=== PATIENT | male | born 1990 | race Asian ===

== ENCOUNTER 2017-05-11 12:35 | Emergency (ER) | payer MEDICAID, OTHER ==
[~2017-05-11] VITALS: Ht 170.2 cm; Wt 55.0 kg
[2017-05-11] MEDS ORDERED: SODIUM CHLORIDE 0.9% 1,000 ML IV ONE (14:28)
[2017-05-11] MEDS ORDERED: IBUPROFEN 600MG TABLET PO ONE (14:30)
[2017-05-11] MEDS ORDERED: MAGNESIUM/ALUMINUM HYDROXIDE/SIMETHICONE 30ML UDC PO ONE (14:30)
[2017-05-11 14:55] LABS: CHLORIDE 103 mEq/L (98-107)
[2017-05-11 14:58] LABS: BASOPHILS % 0.4 % (0.0-2.0); EOSINOPHILS % 2.5 % (0.0-5.0); HEMATOCRIT. 45.6 % (42.0-52.0); HEMOGLOBIN. 15.2 g/dL (14.0-18.0); LYMPHOCYTES % 26.9 % (20.0-50.0); MEAN CORPUSCULAR HEMOGLOBIN 26.9 pg (28.0-32.0); MEAN PLATELET VOLUME 7.6 fl (7.4-10.4); MONOCYTES % 9.8 % (2.0-8.0); NEUTROPHILS % 60.4 % (40.0-76.0); PLATELET 274 x1000/uL (130-400); RED BLOOD CELL COUNT 5.63 mill/uL (4.7-6.1); RED CELL DISTRIBUTION WIDTH 12.9 % (11.6-14.6)
[2017-05-11 15:00] LABS: CARBON DIOXIDE 29 mEq/L (21-32)
[2017-05-11 15:01] LABS: D-DIMER < 0.19 mg/L FEU (<0.50); INR 1.1; PARTIAL THROMBOPLASTIN TIME 26.5 sec (23.4-31.0); PROTHROMBIN TIME 10.9 sec (9.4-11.6)
[2017-05-11 16:06] VITALS: BP 104/76
== END 2017-05-11 16:50 | disposition home or self-care (01) ==
LOC: ER 14:24
DX: R07.89 Other chest pain (principal); M79.662 Pain in left lower leg; K58.9 Irritable bowel syndrome, unspecified; K21.9 Gastro-esophageal reflux disease without esophagitis
CPT/HCPCS: 36415; 71010; 80048; 85025; 85379; 85610; 85730; 93005; 93970; 99285; Z7610; J7030

== ENCOUNTER 2017-05-31 04:41 | Emergency (ER) | payer OTHER ==
[~2017-05-31] VITALS: Ht 170.2 cm; Wt 58.0 kg
[2017-05-31] MEDS ORDERED: MORPHINE SULFATE 4 MG/ML CPJ (NOT FOR IM USE) IV ONE (07:15)
[2017-05-31] MEDS ORDERED: SODIUM CHLORIDE 0.9% 1,000 ML IV ONE (07:15)
[2017-05-31] MEDS ORDERED: ONDANSETRON HCL 4MG/2ML VIAL IV ONE (07:15)
[2017-05-31 07:34] LABS: BASOPHILS % 0.4 % (0.0-2.0); EOSINOPHILS % 1.2 % (0.0-5.0); HEMATOCRIT. 43.2 % (42.0-52.0); HEMOGLOBIN. 14.5 g/dL (14.0-18.0); LYMPHOCYTES % 16.4 % (20.0-50.0); MEAN CORPUSCULAR HEMOGLOBIN 26.9 pg (28.0-32.0); MEAN PLATELET VOLUME 7.8 fl (7.4-10.4); MONOCYTES % 5.5 % (2.0-8.0); NEUTROPHILS % 76.5 % (40.0-76.0); PLATELET 255 x1000/uL (130-400); RED CELL DISTRIBUTION WIDTH 12.9 % (11.6-14.6)
[2017-05-31 07:35] LABS: CHLORIDE 102 mEq/L (98-107)
[2017-05-31 07:36] LABS: CLARITY URINE CLEAR (CLEAR); COLOR URINE YELLOW (YELLOW); GLUCOSE URINE NEGATIVE (NEGATIVE); KETONES URINE NEGATIVE (NEGATIVE); LEUKOCYTE ESTERASE URINE NEGATIVE (NEGATIVE); NITRITE URINE NEGATIVE (NEGATIVE); OCCULT BLOOD URINE NEGATIVE (NEGATIVE); PH URINE 5.5 (4.5-8.0); PROTEIN URINE NEGATIVE (NEGATIVE); SPECIFIC GRAVITY URINE 1.011 (1.005-1.030); UROBILINOGEN URINE 0.2 E.U./dL (0.2-1.0)
[2017-05-31 07:38] LABS: PROTHROMBIN TIME 10.5 sec (9.4-11.6)
[2017-05-31 07:43] LABS: CARBON DIOXIDE 27 mEq/L (21-32)
[2017-05-31] MEDS ORDERED: SODIUM CHLORIDE 0.9% 10ML VIAL ONE (09:41)
[2017-05-31] MEDS ORDERED: IOHEXOL-300 100 ML BOTTLE ONE (09:41)
[2017-05-31] MEDS ORDERED: LEVOFLOXACIN 750MG PREMIX 150 ML IV ONE (11:00)
[2017-05-31] MEDS ORDERED: METRONIDAZOLE 500MG TABLET PO ONE (11:00)
[2017-05-31 11:47] VITALS: BP 97/58
== END 2017-05-31 12:03 | disposition home or self-care (01) ==
LOC: ER 04:41
DX: K52.9 Noninfective gastroenteritis and colitis, unspecified (principal); K92.1 Melena; K21.9 Gastro-esophageal reflux disease without esophagitis; I88.0 Nonspecific mesenteric lymphadenitis
CPT/HCPCS: 36415; 74177; 80053; 81003; 83690; 85025; 85610; 85730; 86850; 86900; 86901; 87086; 96361; 96374; 96375; 99285; A4216; J2270; J2405; J7030; Q9967; Z7610

== ENCOUNTER 2017-06-14 15:20 | Emergency (ER) | payer OTHER ==
[~2017-06-14] VITALS: Ht 170.2 cm; Wt 55.0 kg
[2017-06-14 15:45] VITALS: BP 129/76
[2017-06-14] MEDS ORDERED: ONDANSETRON HCL 4MG TABLET PO ONE (19:00)
[2017-06-14] MEDS ORDERED: FAMOTIDINE 20MG TABLET PO ONE (19:00)
== END 2017-06-14 19:30 | disposition home or self-care (01) ==
LOC: ER 15:46
DX: R19.7 Diarrhea, unspecified (principal); R11.0 Nausea; K21.9 Gastro-esophageal reflux disease without esophagitis
CPT/HCPCS: 99283; Q0162

== ENCOUNTER 2017-10-17 06:32 | Emergency (ER) | payer OTHER ==
[~2017-10-17] VITALS: Ht 170.2 cm; Wt 55.0 kg
[2017-10-17] MEDS ORDERED: SODIUM CHLORIDE 0.9% 1,000 ML IV ONE (11:00)
[2017-10-17 13:40] VITALS: BP 119/64
== END 2017-10-17 14:25 | disposition home or self-care (01) ==
LOC: ER 11:13
DX: J32.9 Chronic sinusitis, unspecified (principal); J02.9 Acute pharyngitis, unspecified; R07.89 Other chest pain; K21.9 Gastro-esophageal reflux disease without esophagitis
CPT/HCPCS: 71045; 87804; 93005; 96360; 96361; 99285; J7030; Z7610

== ENCOUNTER 2017-10-26 13:34 | Emergency (ER) | payer OTHER ==
[~2017-10-26] VITALS: Ht 170.2 cm; Wt 54.6 kg
[2017-10-26] MEDS ORDERED: SODIUM CHLORIDE 0.9% 1,000 ML IV ONE (17:21)
[2017-10-26] MEDS ORDERED: KETOROLAC 30MG/ML VIAL IV STA (17:21)
[2017-10-26] MEDS ORDERED: DEXAMETHASONE 10 MG/ML VIAL IV ONE (17:30)
[2017-10-26 17:50] LABS: BASOPHILS % 0.3 % (0.0-2.0); EOSINOPHILS % 1.3 % (0.0-5.0); HEMATOCRIT. 41.3 % (42.0-52.0); HEMOGLOBIN. 14.3 g/dL (14.0-18.0); LYMPHOCYTES % 9.2 % (20.0-50.0); MEAN CORPUSCULAR HEMOGLOBIN 27.4 pg (28.0-32.0); MEAN CORPUSCULAR VOLUME 79.4 fL (80.0-94.0); MEAN PLATELET VOLUME 7.4 fl (7.4-10.4); MONOCYTES % 9.5 % (2.0-8.0); NEUTROPHILS % 79.7 % (40.0-76.0); PLATELET 248 x1000/uL (130-400); RED BLOOD CELL COUNT 5.21 mill/uL (4.7-6.1); RED CELL DISTRIBUTION WIDTH 12.6 % (11.6-14.6)
[2017-10-26 17:54] LABS: CHLORIDE 103 mEq/L (98-107)
[2017-10-26 19:01] VITALS: BP 105/68
[2017-10-26] MEDS ORDERED: IOHEXOL-300 100 ML BOTTLE ONE (19:02)
== END 2017-10-26 20:07 | disposition home or self-care (01) ==
LOC: ER 14:44
DX: J02.9 Acute pharyngitis, unspecified (principal); M43.6 Torticollis; J32.9 Chronic sinusitis, unspecified; K21.9 Gastro-esophageal reflux disease without esophagitis
CPT/HCPCS: 36415; 70491; 80053; 85025; 96361; 96374; 96375; 99285; J1100; J1885; J7030; Q9967

== ENCOUNTER 2018-01-08 20:28 | Emergency (ER) | payer OTHER ==
[~2018-01-08] VITALS: Ht 170.2 cm; Wt 54.0 kg
[2018-01-08] MEDS ORDERED: FAMOTIDINE 20MG TABLET PO ONE (23:45)
[2018-01-09 01:30] VITALS: BP 96/59
== END 2018-01-09 02:10 | disposition home or self-care (01) ==
LOC: ER 20:28
DX: R09.89 Other specified symptoms and signs involving the circulatory and respiratory systems (principal); K21.9 Gastro-esophageal reflux disease without esophagitis
CPT/HCPCS: 70360; 99284

== ENCOUNTER 2018-05-07 19:27 | Emergency (ER) | payer OTHER ==
[~2018-05-07] VITALS: Ht 170.2 cm; Wt 48.0 kg
[2018-05-07 23:23] VITALS: BP 119/76
== END 2018-05-08 04:26 | disposition home or self-care (01) ==
LOC: ER 19:27
DX: R04.0 Epistaxis (principal)
CPT/HCPCS: 99281

== ENCOUNTER 2018-08-29 09:24 | Emergency (ER) | payer OTHER ==
[~2018-08-29] VITALS: Ht 170.2 cm; Wt 60.8 kg
[2018-08-29] MEDS ORDERED: MORPHINE SULFATE 4 MG/ML CPJ (NOT FOR IM USE) IV STA (10:24)
[2018-08-29] MEDS ORDERED: ONDANSETRON HCL 4MG/2ML INJ IV STA (10:24)
[2018-08-29 10:39] LABS: BASOPHILS % 0.2 % (0.0-2.0); EOSINOPHILS % 1.5 % (0.0-5.0); HEMATOCRIT. 40.7 % (42.0-52.0); HEMOGLOBIN. 13.6 g/dL (14.0-18.0); LYMPHOCYTES % 17.4 % (20.0-50.0); MEAN CORPUSCULAR HEMOGLOBIN 27.3 pg (28.0-32.0); MEAN CORPUSCULAR VOLUME 81.6 fL (80.0-94.0); MEAN PLATELET VOLUME 7.9 fl (7.4-10.4); MONOCYTES % 8.1 % (2.0-8.0); NEUTROPHILS % 72.8 % (40.0-76.0); PLATELET 248 x1000/uL (130-400); RED BLOOD CELL COUNT 4.98 mill/uL (4.7-6.1); RED CELL DISTRIBUTION WIDTH 12.8 % (11.6-14.6)
[2018-08-29 10:40] LABS: CLARITY URINE CLEAR (CLEAR); COLOR URINE DARK YELLOW (YELLOW); KETONES URINE 2+ (NEGATIVE); LEUKOCYTE ESTERASE URINE NEGATIVE (NEGATIVE); NITRITE URINE NEGATIVE (NEGATIVE); OCCULT BLOOD URINE NEGATIVE (NEGATIVE); PH URINE 5.5 (4.5-8.0); PROTEIN URINE NEGATIVE (NEGATIVE); SPECIFIC GRAVITY URINE 1.031 (1.005-1.030)
[2018-08-29 10:45] LABS: CHLORIDE 102 mEq/L (98-107)
[2018-08-29 11:09] LABS: INR 1.1; PROTHROMBIN TIME 10.6 sec (9.1-11.1)
[2018-08-29] MEDS ORDERED: IOHEXOL-300 100 ML BOTTLE ONE (11:54)
[2018-08-29] MEDS ORDERED: ONDANSETRON 4MG ODT PO ONE (13:15)
[2018-08-29] MEDS ORDERED: SODIUM CHLORIDE 0.9% 1,000 ML IV ONE (13:22)
[2018-08-29] MEDS ORDERED: METOCLOPRAMIDE HCL 10MG/2ML VIAL IV ONE (13:30)
[2018-08-29 15:30] VITALS: BP 112/67
[2018-08-29] MEDS ORDERED: MAGNESIUM/ALUMINUM HYDROXIDE/SIMETHICONE 30ML UDC PO NR (15:45)
== END 2018-08-29 16:10 | disposition home or self-care (01) ==
LOC: ER 09:28
DX: R10.13 Epigastric pain (principal); K59.00 Constipation, unspecified; R05 Cough; R06.02 Shortness of breath; K21.9 Gastro-esophageal reflux disease without esophagitis; Z90.49 Acquired absence of other specified parts of digestive tract; Z98.890 Other specified postprocedural states
CPT/HCPCS: 36415; 74177; 80053; 81003; 83690; 85025; 85610; 96361; 96374; 96375; 99284; J2270; J2405; J2765; J7030; Q0162; Q9967; Z7610

== ENCOUNTER 2019-04-12 11:01 | Emergency (ER) | payer MEDICAID, OTHER ==
[~2019-04-12] VITALS: Ht 170.2 cm; Wt 54.0 kg
[2019-04-12 13:44] VITALS: BP 110/62
== END 2019-04-12 13:46 | disposition home or self-care (01) ==
LOC: ER 11:01
DX: R42 Dizziness and giddiness (principal)
CPT/HCPCS: 99281

== ENCOUNTER 2022-02-14 16:29 | Inpatient (IN) | payer OTHER ==
[~2022-02-14] VITALS: Ht 170.2 cm; Wt 67.6 kg
[2022-02-14] MEDS ORDERED: SODIUM CHLORIDE 0.9% 1000ML BAG (SEPSIS BOLUS) IV ONE (17:15)
[2022-02-14] MEDS ORDERED: AZITHROMYCIN 500MG/250ML 250 ML IV ONE (17:15)
[2022-02-14] MEDS ORDERED: CEFTRIAXONE 1 G PREMIX 50 ML IV ONE (17:15)
[2022-02-14] MEDS ORDERED: SODIUM CHLORIDE 0.9% 1,000 ML IV ONE (17:15)
[2022-02-14 17:32] LABS: HEMATOCRIT. 43.2 % (42.0-52.0); HEMOGLOBIN. 14.5 g/dL (14.0-18.0); MEAN CORPUSCULAR HEMOGLOBIN 26.9 pg (28.0-32.0); MEAN PLATELET VOLUME 7.8 fl (7.4-10.4); PLATELET 249 x1000/uL (130-400); RED CELL DISTRIBUTION WIDTH 13.4 % (11.6-14.6)
[2022-02-14 17:39] LABS: CHLORIDE 98 mEq/L (98-107)
[2022-02-14 17:45] LABS: CLARITY URINE CLEAR (CLEAR); COLOR URINE YELLOW (YELLOW); KETONES URINE TRACE (NEGATIVE); LEUKOCYTE ESTERASE URINE NEGATIVE (NEGATIVE); NITRITE URINE NEGATIVE (NEGATIVE); OCCULT BLOOD URINE NEGATIVE (NEGATIVE); PH URINE 5.5 (4.5-8.0); PROTEIN URINE NEGATIVE (NEGATIVE); SPECIFIC GRAVITY URINE 1.008 (1.005-1.030); UROBILINOGEN URINE 0.2 E.U./dL (0.2-1.0)
[2022-02-14] MEDS ORDERED: ONDANSETRON HCL 4MG/2ML INJ IV NR (17:49)
[2022-02-14] MEDS ORDERED: POTASSIUM CHLORIDE 20MEQ TABLET SR PO NR (18:45)
[2022-02-14] MEDS ORDERED: IOHEXOL-300 100 ML BOTTLE ONE (18:59)
[2022-02-14 20:22] LABS: *AMPHETAMINES SCREEN URINE NEGATIVE (NEGATIVE); *BARBITURATES SCREEN URINE NEGATIVE (NEGATIVE); *BENZODIAZEPINES SCREEN URINE NEGATIVE (NEGATIVE); *COCAINE SCREEN URINE NEGATIVE (NEGATIVE); CANNABINOID URINE SCREEN NEGATIVE (NEGATIVE); METHADONE URINE SCREEN NEGATIVE (NEGATIVE); OPIATES URINE SCREEN NEGATIVE (NEGATIVE); PHENCYCLIDINE URINE SCREEN NEGATIVE (NEGATIVE)
[2022-02-14 21:41] LABS: PLATELET ESTIMATE NORMAL
[2022-02-14] MEDS ORDERED: ALBUTEROL 6.7GM HFA INHALER ORI PRN (23:45)
[2022-02-14] MEDS ORDERED: DIPHENHYDRAMINE 50MG/ML VIAL IV PRN (23:45)
[2022-02-14] MEDS ORDERED: ONDANSETRON HCL 4MG/2ML INJ IV PRN (23:45)
[2022-02-14] MEDS ORDERED: CLONIDINE 0.1MG TABLET PO PRN (23:45)
[2022-02-14] MEDS ORDERED: DOCUSATE SODIUM 100MG CAPSULE PO PRN (23:45)
[2022-02-14] MEDS ORDERED: MAGNESIUM/ALUMINUM HYDROXIDE/SIMETHICONE 30ML UDC PO PRN (23:45)
[2022-02-14] MEDS ORDERED: MORPHINE SULFATE 2 MG/ML CPJ (NOT FOR IM USE) IV PRN (23:45)
[2022-02-15] VITALS (8 sets, daily range): BP systolic 103–117; BP diastolic 59–74
[2022-02-15] MEDS ORDERED: MORPHINE SULFATE 4 MG/ML CPJ (NOT FOR IM USE) IV ONE
[2022-02-15] MEDS: SODIUM CHLORIDE 0.45% 1,000 ML IV SCH ×2 (00:03→12:49)
[2022-02-15] MEDS ORDERED: IOHEXOL-350 100 ML BOTTLE ONE (00:30)
[2022-02-15] MEDS ORDERED: ACETAMINOPHEN 325MG TABLET PO ONE (00:30)
[2022-02-15] MEDS: HYDROCODONE/ACETAMINOPHEN 5/325MG TABLET PO PRN (04:36)
[2022-02-15] MEDS: SODIUM CHLORIDE 0.9% INJ 3ML FLUSH IVF SCH ×3 (04:37→22:00)
[2022-02-15 06:36] LABS: CHLORIDE 105 mEq/L (98-107)
[2022-02-15 06:38] LABS: HEMATOCRIT. 42.6 % (42.0-52.0); HEMOGLOBIN. 14.2 g/dL (14.0-18.0); MEAN CORPUSCULAR HEMOGLOBIN 26.8 pg (28.0-32.0); MEAN CORPUSCULAR VOLUME 80.5 fL (80.0-94.0); MEAN PLATELET VOLUME 8.4 fl (7.4-10.4); PLATELET 223 x1000/uL (130-400); RED CELL DISTRIBUTION WIDTH 13.8 % (11.6-14.6)
[2022-02-15] MEDS: ACETAMINOPHEN 325MG TABLET PO PRN ×3 (08:48→22:39)
[2022-02-15] MEDS: ENOXAPARIN 40MG/0.4ML SYR SUBCUT SCH (08:49)
[2022-02-15] MEDS ORDERED: CEFTRIAXONE 1 G PREMIX 50 ML IV SCH (09:00)
[2022-02-15] MEDS ORDERED: AZITHROMYCIN 500 MG in DEXT 5% WATER 250 ML IV SCH (09:00)
[2022-02-15 10:25] LABS: PLATELET ESTIMATE NORMAL
[2022-02-15] MEDS ORDERED: NALOXONE HCL 0.4MG/ML VIAL IV PRN (14:15)
[2022-02-15] MEDS ORDERED: POTASSIUM CHLORIDE 20MEQ TABLET SR PO NR (14:15)
[2022-02-15] MEDS: CEFTRIAXONE 1,000 MG in DEXTROSE 5% WATER 50 ML IV SCH (17:53)
[2022-02-15] MEDS ORDERED: AZITHROMYCIN 500MG in DEXTROSE 5% WATER 250ML IV SCH (18:30)
[2022-02-16] VITALS: BP 93/55
[2022-02-16] MEDS: SODIUM CHLORIDE 0.45% 1,000 ML IV SCH ×3 (00:38→14:14)
[2022-02-16] MEDS: SODIUM CHLORIDE 0.9% INJ 3ML FLUSH IVF SCH ×4 (04:54→21:19)
[2022-02-16 04:58] VITALS: BP 103/66
[2022-02-16 07:41] LABS: BASOPHILS % 0.2 % (0.0-2.0); HEMATOCRIT. 43.4 % (42.0-52.0); HEMOGLOBIN. 14.4 g/dL (14.0-18.0); LYMPHOCYTES % 15.9 % (20.0-50.0); MEAN CORPUSCULAR VOLUME 80.9 fL (80.0-94.0); MEAN PLATELET VOLUME 8.3 fl (7.4-10.4); MONOCYTES % 11.3 % (2.0-8.0); NEUTROPHILS % 72.6 % (40.0-76.0); PLATELET 163 x1000/uL (130-400); RED BLOOD CELL COUNT 5.36 mill/uL (4.7-6.1); RED CELL DISTRIBUTION WIDTH 13.9 % (11.6-14.6)
[2022-02-16 08:00] VITALS: BP 96/48
[2022-02-16 08:00] LABS: CHLORIDE 103 mEq/L (98-107)
[2022-02-16] MEDS: ACETAMINOPHEN 325MG TABLET PO PRN ×2 (10:00→21:21)
[2022-02-16] MEDS: ENOXAPARIN 40MG/0.4ML SYR SUBCUT SCH (10:00)
[2022-02-16 12:00] VITALS: BP 114/65
[2022-02-16] MEDS ORDERED: DIPHENOXYLATE/ATROPINE 2.5/0.025MG TABLET PO PRN (12:30)
[2022-02-16] MEDS: GUAIFENESIN/DM 600MG/30MG ER TAB 12HR PO SCH ×2 (13:24→21:19)
[2022-02-16 16:00] VITALS: BP 101/53
[2022-02-16] MEDS: CEFTRIAXONE 1,000 MG in DEXTROSE 5% WATER 50 ML IV SCH (17:28)
[2022-02-16 20:00] VITALS: BP 95/57
[2022-02-16] MEDS: FLUTICASONE PROPIONATE 50MCG/SPRAY BOTTLE BOTHNSTRLS SCH (21:19)
[2022-02-17] VITALS: BP 102/66
[2022-02-17 04:00] VITALS: BP 91/52
[2022-02-17] MEDS: SODIUM CHLORIDE 0.45% 1,000 ML IV SCH ×2 (05:05→17:13)
[2022-02-17] MEDS: SODIUM CHLORIDE 0.9% INJ 3ML FLUSH IVF SCH ×3 (06:00→20:08)
[2022-02-17 06:36] LABS: BASOPHILS % 0.2 % (0.0-2.0); EOSINOPHILS % 0.1 % (0.0-5.0); HEMATOCRIT. 40.9 % (42.0-52.0); HEMOGLOBIN. 13.8 g/dL (14.0-18.0); MEAN CORPUSCULAR HEMOGLOBIN 26.9 pg (28.0-32.0); MEAN CORPUSCULAR VOLUME 79.8 fL (80.0-94.0); MEAN PLATELET VOLUME 8.4 fl (7.4-10.4); MONOCYTES % 10.1 % (2.0-8.0); NEUTROPHILS % 65.6 % (40.0-76.0); PLATELET 152 x1000/uL (130-400); RED BLOOD CELL COUNT 5.13 mill/uL (4.7-6.1); RED CELL DISTRIBUTION WIDTH 13.5 % (11.6-14.6)
[2022-02-17 07:44] LABS: CHLORIDE 104 mEq/L (98-107)
[2022-02-17 07:59] VITALS: BP 106/67
[2022-02-17] MEDS: ENOXAPARIN 40MG/0.4ML SYR SUBCUT SCH (08:30)
[2022-02-17] MEDS: FLUTICASONE PROPIONATE 50MCG/SPRAY BOTTLE BOTHNSTRLS SCH ×2 (08:31→20:08)
[2022-02-17] MEDS: GUAIFENESIN/DM 600MG/30MG ER TAB 12HR PO SCH ×2 (11:33→20:09)
[2022-02-17 12:00] VITALS: BP 103/56
[2022-02-17 16:00] VITALS: BP 105/71
[2022-02-17] MEDS: DIPHENOXYLATE/ATROPINE 2.5/0.025MG TABLET PO PRN (17:12)
[2022-02-17] MEDS: CEFTRIAXONE 1,000 MG in DEXTROSE 5% WATER 50 ML IV SCH (17:13)
[2022-02-17 20:00] VITALS: BP 102/48
[2022-02-17] MEDS: ACETAMINOPHEN 325MG TABLET PO PRN (20:09)
[2022-02-18] VITALS: BP 107/62
[2022-02-18 04:00] VITALS: BP 96/63
[2022-02-18] MEDS: SODIUM CHLORIDE 0.9% INJ 3ML FLUSH IVF SCH ×3 (06:00→20:25)
[2022-02-18 07:54] VITALS: BP 108/69
[2022-02-18] MEDS: SODIUM CHLORIDE 0.45% 1,000 ML IV SCH ×2 (08:24→20:26)
[2022-02-18] MEDS: GUAIFENESIN 200MG/10ML SUGAR FREE UDC PO PRN ×2 (08:24→20:25)
[2022-02-18] MEDS: HYDROCODONE/ACETAMINOPHEN 5/325MG TABLET PO PRN (08:25)
[2022-02-18] MEDS: GUAIFENESIN/DM 600MG/30MG ER TAB 12HR PO SCH ×2 (08:26→21:00)
[2022-02-18] MEDS: ENOXAPARIN 40MG/0.4ML SYR SUBCUT SCH (08:26)
[2022-02-18] MEDS: FLUTICASONE PROPIONATE 50MCG/SPRAY BOTTLE BOTHNSTRLS SCH ×2 (08:43→20:27)
[2022-02-18 12:00] VITALS: BP 98/58
[2022-02-18] MEDS ORDERED: BENZONATATE 100MG CAPSULE PO PRN (14:45)
[2022-02-18 16:00] VITALS: BP 100/65
[2022-02-18] MEDS: CEFTRIAXONE 1,000 MG in DEXTROSE 5% WATER 50 ML IV SCH (17:42)
[2022-02-18 20:00] VITALS: BP 105/72
[2022-02-19] VITALS: BP 93/59
[2022-02-19 04:00] VITALS: BP 101/58
[2022-02-19] MEDS: SODIUM CHLORIDE 0.9% INJ 3ML FLUSH IVF SCH ×3 (05:30→21:31)
[2022-02-19 07:35] LABS: BASOPHILS % 0.3 % (0.0-2.0); EOSINOPHILS % 1.9 % (0.0-5.0); HEMATOCRIT. 41.9 % (42.0-52.0); HEMOGLOBIN. 14.2 g/dL (14.0-18.0); LYMPHOCYTES % 24.1 % (20.0-50.0); MEAN CORPUSCULAR HEMOGLOBIN 26.8 pg (28.0-32.0); MEAN CORPUSCULAR VOLUME 79.1 fL (80.0-94.0); MEAN PLATELET VOLUME 8.3 fl (7.4-10.4); MONOCYTES % 13.3 % (2.0-8.0); NEUTROPHILS % 60.4 % (40.0-76.0); PLATELET 146 x1000/uL (130-400); RED BLOOD CELL COUNT 5.29 mill/uL (4.7-6.1); RED CELL DISTRIBUTION WIDTH 13.1 % (11.6-14.6)
[2022-02-19 07:53] LABS: CHLORIDE 104 mEq/L (98-107)
[2022-02-19 08:00] VITALS: BP 136/72
[2022-02-19] MEDS: FLUTICASONE PROPIONATE 50MCG/SPRAY BOTTLE BOTHNSTRLS SCH (08:23)
[2022-02-19] MEDS: GUAIFENESIN 200MG/10ML SUGAR FREE UDC PO PRN ×2 (08:24→21:30)
[2022-02-19] MEDS: ENOXAPARIN 40MG/0.4ML SYR SUBCUT SCH (08:25)
[2022-02-19] MEDS: GUAIFENESIN/DM 600MG/30MG ER TAB 12HR PO SCH ×2 (08:25→21:00)
[2022-02-19] MEDS: SODIUM CHLORIDE 0.45% 1,000 ML IV SCH ×2 (09:46→21:30)
[2022-02-19 11:58] VITALS: BP 107/69
[2022-02-19 15:51] VITALS: BP 128/70
[2022-02-19] MEDS: CEFTRIAXONE 1,000 MG in DEXTROSE 5% WATER 50 ML IV SCH (17:17)
[2022-02-19 19:09] LABS: INFLUENZA B AB CF Negative (Neg:<1:8)
[2022-02-19 20:00] VITALS: BP 97/52
[2022-02-20] VITALS: BP 91/60
[2022-02-20 04:00] VITALS: BP 111/66
[2022-02-20] MEDS: SODIUM CHLORIDE 0.9% INJ 3ML FLUSH IVF SCH ×3 (05:35→20:37)
[2022-02-20 08:00] VITALS: BP 102/63
[2022-02-20] MEDS: GUAIFENESIN/DM 600MG/30MG ER TAB 12HR PO SCH ×2 (09:00→20:37)
[2022-02-20] MEDS: ENOXAPARIN 40MG/0.4ML SYR SUBCUT SCH (09:00)
[2022-02-20 12:00] VITALS: BP 119/78
[2022-02-20] MEDS: SODIUM CHLORIDE 0.45% 1,000 ML IV SCH ×2 (12:54→20:42)
[2022-02-20] MEDS: DIPHENOXYLATE/ATROPINE 2.5/0.025MG TABLET PO PRN (14:18)
[2022-02-20 16:00] VITALS: BP 107/57
[2022-02-20 20:00] VITALS: BP 91/58
[2022-02-21] VITALS: BP 102/60
[2022-02-21 04:04] VITALS: BP 108/76
[2022-02-21] MEDS: SODIUM CHLORIDE 0.9% INJ 3ML FLUSH IVF SCH ×2 (05:30→14:59)
[2022-02-21 08:00] VITALS: BP 100/56
[2022-02-21] MEDS: GUAIFENESIN/DM 600MG/30MG ER TAB 12HR PO SCH (09:26)
[2022-02-21] MEDS: ENOXAPARIN 40MG/0.4ML SYR SUBCUT SCH (09:26)
[2022-02-21 12:00] VITALS: BP 106/67
[2022-02-21] MEDS: SODIUM CHLORIDE 0.45% 1,000 ML IV SCH (14:59)
[2022-02-21 16:00] VITALS: BP 114/64
[2022-02-21 17:30] VITALS: BP 114/64
== END 2022-02-21 18:00 | disposition home or self-care (01) | DRG 720 ==
LOC: ER 16:29 → 7WST 23:10 → EDBEDREQ 23:12 → ENRESERV 23:26 → 7EST 02-15 15:00
PROVIDERS: ADMIT Internal Medicine; ATTEND Internal Medicine
DX: A41.89 Other specified sepsis (principal); J96.00 Acute respiratory failure, unspecified whether with hypoxia or hypercapnia; J12.82 Pneumonia due to coronavirus disease 2019; U07.1 COVID-19; E86.0 Dehydration; K21.9 Gastro-esophageal reflux disease without esophagitis; K52.9 Noninfective gastroenteritis and colitis, unspecified; J40 Bronchitis, not specified as acute or chronic; E87.2 Acidosis; E87.6 Hypokalemia; R74.01 Elevation of levels of liver transaminase levels; Z28.310 Unvaccinated for COVID-19; Z90.49 Acquired absence of other specified parts of digestive tract; Z88.8 Allergy status to other drugs, medicaments and biological substances
CPT/HCPCS: 36415; 71045; 71275; 74174; 80048; 80053; 80305; 81003; 82728; 83605; 83615; 83880; 84145; 84443; 84484; 85025; 85379; 86140; 86710; 87426; 87804; 93005; 99285; C9803; J0456; J0696; J1650; J2270; J2405; J7030; J7060; Q9967

== ENCOUNTER 2022-05-09 10:36 | Emergency (ER) | payer OTHER ==
[~2022-05-09] VITALS: Ht 170.2 cm; Wt 66.0 kg
[2022-05-09 10:38] VITALS: BP 123/80
[2022-05-09] MEDS ORDERED: ONDANSETRON 4MG/5ML UDC PO ONE (12:45)
[2022-05-09] MEDS ORDERED: CLIN-194 MT (13:04)
== END 2022-05-09 13:39 | disposition home or self-care (01) ==
LOC: ER 10:36
DX: R11.2 Nausea with vomiting, unspecified (principal); T36.0X5A Adverse effect of penicillins, initial encounter; Z88.1 Allergy status to other antibiotic agents; Z90.49 Acquired absence of other specified parts of digestive tract; Z98.890 Other specified postprocedural states; Y92.9 Unspecified place or not applicable
CPT/HCPCS: 93005; 99283

== ENCOUNTER 2023-05-23 19:53 | Emergency (ER) | payer OTHER ==
[~2023-05-23] VITALS: Ht 170.2 cm; Wt 60.0 kg
[~2023-05-23 19:53] MED LIST: CLIN-194 MT
[2023-05-23 20:00] VITALS: O2SAT 98
[2023-05-23 21:06] LABS: BASOPHILS % 0.3 % (0.0-2.0); EOSINOPHILS % 3.4 % (0.0-5.0); HEMATOCRIT. 44.2 % (42.0-52.0); HEMOGLOBIN. 14.9 g/dL (14.0-18.0); LYMPHOCYTES % 21.2 % (20.0-50.0); MEAN CORPUSCULAR HEMOGLOBIN 27.1 pg (28.0-32.0); MEAN CORPUSCULAR HGB CONC 33.7 g/dL (31.0-37.0); MEAN CORPUSCULAR VOLUME 80.4 fL (80.0-94.0); MEAN PLATELET VOLUME 7.8 fl (7.4-10.4); MONOCYTES % 7.1 % (2.0-8.0); PLATELET 267 x1000/uL (130-400); RED CELL DISTRIBUTION WIDTH 12.8 % (11.6-14.6); WHITE BLOOD COUNT 8.8 x1000/uL (4.5-11.0)
[2023-05-23 21:22] LABS: CHLORIDE 102 mEq/L (98-107); INDEX HEMOLYSI 1 (1-3); INDEX ICTERIC 1 (1-4); INDEX LIPEMIC 1 (1-3); POTASSIUM 3.9 mEq/L (3.5-5.1); SODIUM 135 mEq/L (136-145)
[2023-05-23 21:31] LABS: ALANINE AMINOTRANSFERASE 29 IU/L (13-61); ALBUMIN 4.1 g/dL (3.4-5.0); ASPARTATE AMINOTRANSFERASE 21 IU/L (15-37); BILIRUBIN TOTAL 0.6 mg/dL (0.1-1.0); CALCIUM 9.3 mg/dL (8.5-10.1); CARBON DIOXIDE 27 mEq/L (21-32); GLUCOSE 102 mg/dL (70-105); PROTEIN TOTAL 8.3 g/dL (6.0-8.3); TROPONIN I HIGH SENSITIVITY 5 ng/L (<78); UREA NITROGEN BLOOD 17 mg/dL (7-21)
[2023-05-23] MEDS ORDERED: ASPIRIN 81MG TABLET PO ONE (22:15)
[2023-05-23 23:10] LABS: TROPONIN I HIGH SENSITIVITY 6 ng/L (<78)
[2023-05-24] MEDS ORDERED: ASPIRIN 81MG TABLET PO NR (00:15)
[2023-05-24 00:46] VITALS: BP 120/89; PULSE 98; RESP 14; TEMP 98.2
== END 2023-05-24 00:47 | disposition home or self-care (01) ==
LOC: ER 19:53
DX: R07.89 Other chest pain (principal); K21.9 Gastro-esophageal reflux disease without esophagitis; Z87.19 Personal history of other diseases of the digestive system; Z90.49 Acquired absence of other specified parts of digestive tract
CPT/HCPCS: 80053; 85025; 84484; 36415; 71045; 93005; 99285; Z7610

== ENCOUNTER 2023-06-10 09:48 | Emergency (ER) | payer OTHER ==
[~2023-06-10] VITALS: Ht 172.7 cm; Wt 73.0 kg
[2023-06-10 09:54] VITALS: BP 122/73; PULSE 123; RESP 16; TEMP 97.7; O2SAT 100
[2023-06-10 11:22] LABS: BASOPHILS % 0.5 % (0.0-2.0); EOSINOPHILS % 3.7 % (0.0-5.0); HEMATOCRIT. 46.6 % (42.0-52.0); HEMOGLOBIN. 15.4 g/dL (14.0-18.0); LYMPHOCYTES % 21.5 % (20.0-50.0); MEAN CORPUSCULAR HEMOGLOBIN 26.7 pg (28.0-32.0); MEAN CORPUSCULAR HGB CONC 33.1 g/dL (31.0-37.0); MEAN CORPUSCULAR VOLUME 80.8 fL (80.0-94.0); MEAN PLATELET VOLUME 7.9 fl (7.4-10.4); MONOCYTES % 7.6 % (2.0-8.0); NEUTROPHILS % 66.7 % (40.0-76.0); PLATELET 261 x1000/uL (130-400); RED BLOOD CELL COUNT 5.76 mill/uL (4.7-6.1); WHITE BLOOD COUNT 6.5 x1000/uL (4.5-11.0)
[2023-06-10 11:37] LABS: PROTHROMBIN TIME 10.3 sec (9.6-11.0)
[2023-06-10 12:03] LABS: ALANINE AMINOTRANSFERASE 28 IU/L (10-49); ALBUMIN 4.6 g/dL (3.2-4.8); ASPARTATE AMINOTRANSFERASE 26 IU/L (<34); BILIRUBIN TOTAL 0.7 mg/dL (0.1-1.0); CALCIUM 9.6 mg/dL (8.7-10.4); CARBON DIOXIDE 29 mEq/L (21-32); CHLORIDE 105 mEq/L (98-107); CREATININE 0.9 mg/dL (0.6-1.3); GLUCOSE 96 mg/dL (70-105); POTASSIUM 4.1 mEq/L (3.5-5.1); PROTEIN TOTAL 7.6 g/dL (6.0-8.3); SODIUM 141 mEq/L (136-145); UREA NITROGEN BLOOD 10 mg/dL (9-23)
[2023-06-10] MEDS ORDERED: TOPUD PO (13:00)
[2023-06-10 17:51] LABS: CLARITY URINE CLEAR (CLEAR); COLOR URINE YELLOW (YELLOW); PH URINE 5.5 (4.5-8.0)
[2023-06-10 17:52] LABS: GLUCOSE URINE NEGATIVE (NEGATIVE); KETONES URINE TRACE (NEGATIVE); LEUKOCYTE ESTERASE URINE NEGATIVE (NEGATIVE); NITRITE URINE NEGATIVE (NEGATIVE); OCCULT BLOOD URINE TRACE (NEGATIVE); PROTEIN URINE NEGATIVE (NEGATIVE); UROBILINOGEN URINE 0.2 E.U./dL (0.2-1.0)
[2023-06-10 18:10] LABS: BACTERIA URINE TRACE; RBC URINE 0-2 /hpf (0-2); SQUAMOUS EPITHELIAL CELL URINE RARE /lpf (RARE/1+); WBC URINE 0-2 /hpf (0-2)
== END 2023-06-10 16:37 | disposition home or self-care (01) ==
LOC: ER 09:48
DX: R31.9 Hematuria, unspecified (principal); Z88.1 Allergy status to other antibiotic agents; Z98.890 Other specified postprocedural states; Z90.49 Acquired absence of other specified parts of digestive tract
CPT/HCPCS: 36415; 76770; 80053; 81003; 85025; 99284

== ENCOUNTER 2023-08-25 11:50 | Emergency (ER) | payer OTHER ==
[~2023-08-25] VITALS: Ht 172.7 cm; Wt 66.0 kg
[~2023-08-25 11:50] MED LIST changes: +TOPUD PO
[2023-08-25 11:56] VITALS: O2SAT 98
[2023-08-25 13:44] VITALS: BP 137/75; PULSE 97; RESP 16; TEMP 98.4
== END 2023-08-25 13:45 | disposition home or self-care (01) ==
LOC: ER 11:50
DX: B34.9 Viral infection, unspecified (principal); Z20.822 Contact with and (suspected) exposure to COVID-19; Z88.1 Allergy status to other antibiotic agents; Z90.49 Acquired absence of other specified parts of digestive tract; Z98.890 Other specified postprocedural states
CPT/HCPCS: 71045; 87420; 87426; 99284

== ENCOUNTER 2023-10-28 11:02 | Emergency (ER) | payer OTHER ==
[~2023-10-28] VITALS: Ht 170.2 cm; Wt 58.0 kg
[2023-10-28 11:16] VITALS: TEMP 98.4; O2SAT 100
[2023-10-28 11:27] LABS: BASOPHILS % 0.4 % (0.0-2.0); EOSINOPHILS % 2.9 % (0.0-5.0); HEMATOCRIT. 44.3 % (42.0-52.0); LYMPHOCYTES % 23.7 % (20.0-50.0); MEAN CORPUSCULAR HEMOGLOBIN 27.8 pg (28.0-32.0); MEAN CORPUSCULAR HGB CONC 33.9 g/dL (31.0-37.0); MEAN PLATELET VOLUME 7.6 fl (7.4-10.4); MONOCYTES % 6.9 % (2.0-8.0); NEUTROPHILS % 66.1 % (40.0-76.0); PLATELET 245 x1000/uL (130-400); RED CELL DISTRIBUTION WIDTH 12.6 % (11.6-14.6); WHITE BLOOD COUNT 6.3 x1000/uL (4.5-11.0)
[2023-10-28 12:08] LABS: ALANINE AMINOTRANSFERASE 23 IU/L (10-49); ASPARTATE AMINOTRANSFERASE 21 IU/L (<34); BILIRUBIN TOTAL 0.5 mg/dL (0.1-1.0); CALCIUM 9.6 mg/dL (8.7-10.4); CARBON DIOXIDE 25 mEq/L (21-32); CHLORIDE 106 mEq/L (98-107); CREATININE 0.9 mg/dL (0.6-1.3); GLUCOSE 121 mg/dL (70-105); POTASSIUM 3.6 mEq/L (3.5-5.1); PROTEIN TOTAL 8.5 g/dL (6.0-8.3); SODIUM 138 mEq/L (136-145); UREA NITROGEN BLOOD 10 mg/dL (9-23)
[2023-10-28 12:38] LABS: TROPONIN I HIGH SENSITIVITY < 4 ng/L (3.0-53)
[2023-10-28 14:17] LABS: CLARITY URINE CLEAR (CLEAR); COLOR URINE YELLOW (YELLOW); GLUCOSE URINE NEGATIVE (NEGATIVE); KETONES URINE NEGATIVE (NEGATIVE); LEUKOCYTE ESTERASE URINE NEGATIVE (NEGATIVE); NITRITE URINE NEGATIVE (NEGATIVE); OCCULT BLOOD URINE NEGATIVE (NEGATIVE); PROTEIN URINE NEGATIVE (NEGATIVE); SPECIFIC GRAVITY URINE 1.009 (1.005-1.030); UROBILINOGEN URINE 0.2 E.U./dL (0.2-1.0)
[2023-10-28 17:15] VITALS: BP 111/67; PULSE 87; RESP 18
== END 2023-10-28 17:20 | disposition home or self-care (01) ==
LOC: ER 11:02 → CANBEDREQ 17:06 → ER 17:20
DX: R00.0 Tachycardia, unspecified (principal); Z88.0 Allergy status to penicillin; Z88.1 Allergy status to other antibiotic agents; Z90.49 Acquired absence of other specified parts of digestive tract; Z98.890 Other specified postprocedural states
CPT/HCPCS: 36415; 71045; 80053; 81003; 84484; 85025; 85379; 93005; 99285

== ENCOUNTER 2024-02-05 04:12 | Emergency (ER) | payer OTHER ==
[~2024-02-05] VITALS: Ht 170.2 cm; Wt 75.0 kg
[2024-02-05 04:15] VITALS: O2SAT 99
[2024-02-05] MEDS ORDERED: KETOROLAC 30MG/ML VIAL IV STA (05:19)
[2024-02-05] MEDS ORDERED: ONDANSETRON HCL 4MG/2ML INJ IV ONE (05:30)
[2024-02-05] MEDS ORDERED: DEXAMETHASONE 4MG TABLET PO ONE (05:30)
[2024-02-05] MEDS: KETOROLAC 30MG/ML VIAL IV NR (05:57)
[2024-02-05] MEDS: SODIUM CHLORIDE 0.9% 1,000 ML IV ONE (05:57)
[2024-02-05] MEDS: ONDANSETRON HCL 4MG/2ML INJ IV NR (05:58)
[2024-02-05 06:01] LABS: HEMATOCRIT. 42.8 % (42.0-52.0); HEMOGLOBIN. 14.6 g/dL (14.0-18.0); MEAN CORPUSCULAR HEMOGLOBIN 27.3 pg (28.0-32.0); MEAN CORPUSCULAR VOLUME 80.3 fL (80.0-94.0); PLATELET 233 x1000/uL (130-400); RED BLOOD CELL COUNT 5.33 mill/uL (4.7-6.1); RED CELL DISTRIBUTION WIDTH 12.7 % (11.6-14.6); WHITE BLOOD COUNT 8.5 x1000/uL (4.5-11.0)
[2024-02-05 06:03] LABS: DIFFERENTIAL COMMENT 1
[2024-02-05 06:10] LABS: PROTHROMBIN TIME 11.4 sec (9.6-11.0)
[2024-02-05] MEDS: DEXAMETHASONE 2MG TABLET PO NR (06:12)
[2024-02-05 06:16] LABS: CARBON DIOXIDE 25 mEq/L (21-32); CHLORIDE 100 mEq/L (98-107); POTASSIUM 3.5 mEq/L (3.5-5.1); SODIUM 135 mEq/L (136-145)
[2024-02-05 06:17] LABS: CALCIUM 9.7 mg/dL (8.7-10.4)
[2024-02-05 06:21] LABS: CREATININE 1.1 mg/dL (0.6-1.3); GLUCOSE 96 mg/dL (70-105)
[2024-02-05 06:22] LABS: UREA NITROGEN BLOOD 10 mg/dL (9-23)
[2024-02-05 06:23] LABS: ALANINE AMINOTRANSFERASE 20 IU/L (10-49); ALBUMIN 4.7 g/dL (3.2-4.8); ASPARTATE AMINOTRANSFERASE 22 IU/L (<34)
[2024-02-05 06:24] LABS: BILIRUBIN DIRECT 0.2 mg/dL (<=3.0); BILIRUBIN TOTAL 0.5 mg/dL (0.1-1.0); PROTEIN TOTAL 7.7 g/dL (6.0-8.3)
[2024-02-05] MEDS: DEXAMETHASONE 4MG/ML 1ML VIAL IV ONE (06:27)
[2024-02-05 06:54] LABS: TROPONIN I HIGH SENSITIVITY < 4 ng/L (3.0-53)
[2024-02-05 07:24] LABS: CLARITY URINE CLEAR (CLEAR); COLOR URINE YELLOW (YELLOW); GLUCOSE URINE NEGATIVE (NEGATIVE); KETONES URINE NEGATIVE (NEGATIVE); LEUKOCYTE ESTERASE URINE NEGATIVE (NEGATIVE); NITRITE URINE NEGATIVE (NEGATIVE); OCCULT BLOOD URINE NEGATIVE (NEGATIVE); PROTEIN URINE NEGATIVE (NEGATIVE); UROBILINOGEN URINE 0.2 E.U./dL (0.2-1.0)
[2024-02-05 07:49] LABS: *AMPHETAMINES SCREEN URINE NEGATIVE (NEGATIVE); *BARBITURATES SCREEN URINE NEGATIVE (NEGATIVE); *BENZODIAZEPINES SCREEN URINE NEGATIVE (NEGATIVE); *COCAINE SCREEN URINE NEGATIVE (NEGATIVE); CANNABINOID URINE SCREEN NEGATIVE (NEGATIVE); ECSTASY MDMA SCREEN URINE NEGATIVE (NEGATIVE); METHADONE URINE SCREEN NEGATIVE (NEGATIVE); OPIATES URINE SCREEN NEGATIVE (NEGATIVE); PHENCYCLIDINE URINE SCREEN NEGATIVE (NEGATIVE)
[2024-02-05 08:50] LABS: PLATELET ESTIMATE NORMAL
[2024-02-05] MEDS ORDERED: IBUP-2028 MT (11:42)
[2024-02-05] MEDS ORDERED: NIRM1TAB8 PO (11:42)
[2024-02-05] MEDS ORDERED: TOPUD PO (11:42)
[2024-02-05 12:25] VITALS: BP 105/63; PULSE 105; RESP 16; TEMP 99.1
== END 2024-02-05 12:26 | disposition home or self-care (01) ==
LOC: ER 04:12
DX: U07.1 COVID-19 (principal); J18.9 Pneumonia, unspecified organism; Z88.0 Allergy status to penicillin; Z88.1 Allergy status to other antibiotic agents; Z79.899 Other long term (current) drug therapy; Z90.49 Acquired absence of other specified parts of digestive tract; Z98.890 Other specified postprocedural states
CPT/HCPCS: 80076; 80305; 80048; 81003; 87430; 83880; 83690; 85025; 85610; 84484; 87070; 87804 ×2; 36415; 71045; 93005; 96374; 96375; 99285; 87426; J8540; J1100; J1885; J2405; J7030; Z7610 ×3

== ENCOUNTER 2025-01-14 16:44 | Emergency (ER) | payer OTHER ==
[~2025-01-14] VITALS: Ht 170.2 cm; Wt 57.0 kg
[~2025-01-14 16:44] MED LIST changes: +IBUP-2028 MT; +NIRM1TAB8 PO
[2025-01-14 16:46] VITALS: O2SAT 100
[2025-01-14] MEDS: ACETAMINOPHEN 325MG TABLET PO ONE (17:22)
[2025-01-14] MEDS: ACETAMINOPHEN 650MG/20.3ML UDC PO SCH (17:39)
[2025-01-14 17:44] LABS: CLARITY URINE CLEAR (CLEAR); COLOR URINE YELLOW (YELLOW); GLUCOSE URINE NEGATIVE (NEGATIVE); KETONES URINE TRACE (NEGATIVE); LEUKOCYTE ESTERASE URINE NEGATIVE (NEGATIVE); NITRITE URINE NEGATIVE (NEGATIVE); OCCULT BLOOD URINE NEGATIVE (NEGATIVE); PH URINE 5.5 (4.5-8.0); PROTEIN URINE TRACE (NEGATIVE); SPECIFIC GRAVITY URINE 1.028 (1.005-1.030); UROBILINOGEN URINE 0.2 E.U./dL (0.2-1.0)
[2025-01-14 18:07] LABS: WBC URINE 0-2 /hpf (0-2)
[2025-01-14 18:08] LABS: BACTERIA URINE TRACE; RBC URINE NONE SEEN /hpf (0-2); SQUAMOUS EPITHELIAL CELL URINE RARE /lpf (RARE/1+)
[2025-01-14 18:17] VITALS: BP 112/67; PULSE 84; RESP 18; TEMP 36.7; O2SAT 97
== END 2025-01-14 18:20 | disposition home or self-care (01) ==
LOC: ER 16:44
DX: N48.1 Balanitis (principal); N47.2 Paraphimosis; Z88.0 Allergy status to penicillin; Z88.1 Allergy status to other antibiotic agents; Z90.49 Acquired absence of other specified parts of digestive tract
CPT/HCPCS: 81003; 99283

== ENCOUNTER 2025-07-17 22:45 | Emergency (ER) | payer OTHER ==
[~2025-07-17] VITALS: Ht 168.9 cm; Wt 60.8 kg
[~2025-07-17 22:45] MED LIST changes: +NIRM1TAB11 PO; -NIRM1TAB8 PO
[2025-07-17 22:55] VITALS: O2SAT 99
[2025-07-17 23:41] LABS: CLARITY URINE CLEAR (CLEAR); COLOR URINE YELLOW (YELLOW); GLUCOSE URINE 1+ (NEGATIVE); KETONES URINE NEGATIVE (NEGATIVE); LEUKOCYTE ESTERASE URINE NEGATIVE (NEGATIVE); NITRITE URINE NEGATIVE (NEGATIVE); OCCULT BLOOD URINE NEGATIVE (NEGATIVE); PH URINE 7.0 (4.5-8.0); PROTEIN URINE NEGATIVE (NEGATIVE); SPECIFIC GRAVITY URINE 1.013 (1.005-1.030); UROBILINOGEN URINE 0.2 E.U./dL (0.2-1.0)
[2025-07-18 00:09] LABS: WBC URINE 0-2 /hpf (0-2)
[2025-07-18 00:10] LABS: BACTERIA URINE RARE; RBC URINE NONE SEEN /hpf (0-2); SQUAMOUS EPITHELIAL CELL URINE NONE SEEN /lpf (RARE/1+)
[2025-07-18] MEDS: KETOROLAC 15MG/ML VIAL IM ONE (00:27)
[2025-07-18] MEDS ORDERED: NAPR-1176 MT (01:18)
[2025-07-18 01:31] VITALS: BP 135/66; PULSE 74; RESP 16; TEMP 36.7; O2SAT 99
== END 2025-07-18 01:33 | disposition home or self-care (01) ==
LOC: ER 22:45
DX: N99.89 Other postprocedural complications and disorders of genitourinary system (principal); K21.9 Gastro-esophageal reflux disease without esophagitis; Z41.2 Encounter for routine and ritual male circumcision; Z88.0 Allergy status to penicillin; Z88.1 Allergy status to other antibiotic agents; Z98.890 Other specified postprocedural states
CPT/HCPCS: 99283; 81003; 96372; J1885

== ENCOUNTER 2025-07-19 23:40 | Emergency (ER) | payer OTHER ==
[~2025-07-19] VITALS: Ht 170.2 cm; Wt 60.0 kg
[~2025-07-19 23:40] MED LIST changes: +NAPR-1176 MT
[2025-07-19 23:43] VITALS: O2SAT 99
[2025-07-19 23:48] VITALS: BP 111/77; PULSE 95; RESP 16; TEMP 36.6; O2SAT 99
[2025-07-20] MEDS ORDERED: CIPR-494 MT (00:29)
[2025-07-20] MEDS ORDERED: SULF1TAB48 MT (00:29)
[2025-07-20] MEDS: ACETAMINOPHEN 325MG TABLET PO ONE (01:12)
[2025-07-20] MEDS: SULFAMETHOXAZOLE/TRIMETHOPRIM 800/160MG TABLET PO ONE (01:12)
[2025-07-20] MEDS: IBUPROFEN 400MG TABLET PO ONE (01:13)
== END 2025-07-20 01:30 | disposition home or self-care (01) ==
LOC: ER 23:40
DX: Z48.816 Encounter for surgical aftercare following surgery on the genitourinary system (principal); Z88.0 Allergy status to penicillin; Z88.1 Allergy status to other antibiotic agents
CPT/HCPCS: 99284; Z7610